=== PATIENT | male | born 1995 | race Hispanic/Latino ===

== ENCOUNTER → 2023-04-10 | Emergency (ER) | payer OTHER ==
[~2023-04-10] MED LIST: KETOROLAC 30 MG/ML INJ ONE
[2023-04-10 08:53] LABS: Absolute Lymphocytes (CBC) 2.6 K/uL (0.7-4.9); Hematocrit 47.4 % (39.6-49.0); Lymphocytes % 27.7 % (15.3-44.8); MCV 88.1 fL (80-100); MPV 8.2 fL (7.6-11.3); Platelets 267 thou/uL (152-406); RBC Red Blood Cell Count 5.38 M/uL (4.33-5.43)
[2023-04-10 09:02] LABS: SARS-CoV-2 Antigen Rapid Res Negative (Negative)
[2023-04-10 09:14] LABS: Albumin 3.8 g/dL (3.4-5.0); Bilirubin Direct 0.1 mg/dL (0-0.2); Bilirubin Indirect, Calculated 0.4 mg/dL (0.2-0.8); Bilirubin Total 0.5 mg/dL (0.2-1.0); Magnesium 2.2 mg/dL (1.6-2.4); Potassium 3.8 mEq/L (3.5-5.1); Protein, Total 7.6 g/dL (6.4-8.2); Thyroid Stimulating Hormone 0.774 uIU/mL (0.358-3.740); Troponin High Sensitivity 3.8 pg/mL (<58.9)
--- NOTE | 2023-04-10 09:17 | RAD REPORT ---
EXAM DESCRIPTION: Radha Single View04/10/2023 9:09 am CLINICAL HISTORY: Chest pain COMPARISON: none FINDINGS: The lungs appear clear of acute infiltrate. The heart is normal size IMPRESSION: No acute abnormalities displayed
--- NOTE | 2023-04-10 09:38 | ER ---
Nurse's Notes [facility] Name: Ramírez Blanca Age: 28 yrs Sex: Male : 1995 Arrival Date: 04/10/2023 Time: 07:31 Bed 19 Private MD: Diagnosis: Chest pain, unspecified Presentation: 04/10 08:14 Chief complaint: Chief complaint: Chest pain since yesterday, cough x 3-4 days. hb 08:14 Coronavirus screen: At this time, the client does not indicate any symptoms associated hb with coronavirus-19. Ebola Screen: No symptoms or risks identified at this time. Initial Sepsis Screen: Does the patient meet any 2 criteria? No. Patient's initial sepsis screen is negative. Does the patient have a suspected source of infection? No. Patient's initial sepsis screen is negative. Risk Assessment: Do you want to hurt yourself or someone else? Patient reports no desire to harm self or others. Onset of symptoms was April 06, 2023. 08:14 Method Of Arrival: Ambulatory hb 08:14 Acuity: FIDELINA 3 hb Historical: - Allergies: 08:16 Suprax; hb - Home Meds: 08:16 None [Active]; hb - PMHx: 08:16 None; hb - PSHx: 08:16 Rhinoplasty; Ear Tubes; Tonsillectomy; hb - Immunization history:: Adult Immunizations up to date. - Social history:: Smoking status: Patient/guardian denies using tobacco. Screenin:17 [facility] ED Fall Risk Assessment (Adult) Score/Fall Risk Level 0 - 2 = Low Risk hb Oriented to surroundings, Maintained a safe environment, Educated pt \T\ family on fall prevention, incl call for assistance when getting out of bed. Abuse screen: Denies threats or abuse. Denies injuries from another. Nutritional screening: No deficits noted. Tuberculosis screening: No symptoms or risk factors identified. Assessment: 08:17 General: Appears in no apparent distress. Behavior is calm, cooperative. Pain: Pain hb currently is 3 out of 10 on a pain scale. Neuro: Level of Consciousness is awake, alert, obeys commands, Oriented to person, place, time, situation. Cardiovascular: Patient's skin is warm and dry. Respiratory: Respiratory effort is even, unlabored, Respiratory pattern is regular, symmetrical. GI: No signs and/or symptoms were reported involving the gastrointestinal system. : No signs and/or symptoms were reported regarding the genitourinary system. EENT: No signs and/or symptoms were reported regarding the EENT system. Derm: Skin is pink, warm \T\ dry. Musculoskeletal: No signs and/or symptoms reported regarding the musculoskeletal system. Vital Signs: 08:14 BP 163 / 86; Pulse 96; Resp 16; Temp 98.9(O); Pulse Ox 100% on R/A; Weight 113.4 kg; hb Height 6 ft. 1 in. ; Pain 3/10; 10:14 BP 138 / 78; Pulse 85; Resp 18; Temp 98; Pulse Ox 100% on R/A; ph 08:14 Body Mass Index 32.98 (113.40 kg, 185.42 cm) hb 08:14 Pain Scale: Adult hb ED Course: 07:35 Patient arrived in ED. mr 07:35 Aly Barron MD is Attending Physician. rt 08:16 Triage completed. hb 08:17 Arm band placed on. hb 08:17 Patient has correct armband on for positive identification. Provided Education on: hb tests, result times. Client placed on continuous cardiac and pulse oximetry monitoring. NIBP monitoring applied. 08:24 Mervat Campos, RN is Primary Nurse. hb 08:32 Patient maintains SpO2 saturation greater than 95% on room air. hb 08:35 SARS RAPID Sent. hb 08:35 Influenza Screen (a \T\ B) Sent. hb 08:35 TSH Sent. hb 08:35 Basic Metabolic Panel Sent. hb 08:35 CBC with Diff Sent. hb 08:35 D-Dimer Sent. hb 08:35 LFT's Sent. hb 08:35 Magnesium Sent. hb 08:35 Troponin HS Sent. hb 08:36 Inserted saline lock: 20 gauge in right antecubital area, using aseptic technique. hb Blood collected. 09:11 XRAY Chest (1 view) In Process Unspecified. EDMS 10:13 No provider procedures requiring assistance completed. IV discontinued, intact, ph bleeding controlled, No redness/swelling at site. Pressure dressing applied. Administered Medications: 08:35 Drug: Ketorolac IVP 15 mg IVP once Route: IVP; Site: right antecubital; hb Medication: 08:17 VIS not applicable for this client. hb Outcome: 09:37 Discharge ordered by . rt 10:13 Discharged to home ambulatory, ph 10:13 Condition: good 10:13 Discharge instructions given to patient, Instructed on discharge instructions, follow up and referral plans. Demonstrated understanding of instructions, follow-up care, 10:15 Patient left the ED. ph Signatures: Dispatcher [employer] EDDE WallerJeannie hahn, Reg Reg mr Pili Grey RN RN ph Mervat Campos RN RN Aly Barron MD MD rt Corrections: (The following items were deleted from the chart) 08:16 08:14 Chief complaint: hb hb
--- NOTE | 2023-04-10 09:38 | EDPHYS ---
Physician Documentation [facility] Name: Ramírez Blanca Age: 28 yrs Sex: Male : 1995 Arrival Date: 04/10/2023 Time: 07:31 Bed 19 Private MD: ED Physician Aly Barron HPI: 04/10 08:19 This 28 yrs old Male presents to ER via Ambulatory with complaints of Cough, rt Chest Pain. 08:19 Patient presents to the ED with cough, chest pain starting last night. Patient states rt that he has been coughing up phlegm. States that he feels somewhat short of breath, states that his anxiety is acting up. Denies other acute complaints at this time, symptoms are moderate in severity, no other aggravating alleviating factors.. Historical: - Allergies: 08:16 Suprax; hb - Home Meds: 08:16 None [Active]; hb - PMHx: 08:16 None; hb - PSHx: 08:16 Rhinoplasty; Ear Tubes; Tonsillectomy; hb - Immunization history:: Adult Immunizations up to date. - Social history:: Smoking status: Patient/guardian denies using tobacco. ROS: 08:19 Constitutional: Negative for fever, chills, and weight loss, Abdomen/GI: Negative for rt abdominal pain, nausea, vomiting, diarrhea, and constipation, MS/Extremity: Negative for injury and deformity, Skin: Negative for injury, rash, and discoloration, Neuro: Negative for headache, weakness, numbness, tingling, and seizure, 08:19 Cardiovascular: Positive for chest pain, Negative for edema, 08:19 Respiratory: Positive for cough, shortness of breath, 08:19 Psych: Positive for anxiety, Negative for depression, Exam: 08:19 Constitutional: This is a well developed, well nourished patient who is awake, alert, rt and in no acute distress. Head/Face: Normocephalic, atraumatic. ENT: Nares patent. No nasal discharge, no septal abnormalities noted. Tympanic membranes are normal and external auditory canals are clear. Oropharynx with no redness, swelling, or masses, exudates, or evidence of obstruction, uvula midline. Mucous membranes moist. Chest/axilla: Normal chest wall appearance and motion. Nontender with no deformity. No lesions are appreciated. Cardiovascular: Regular rate and rhythm with a normal S1 and S2. No gallops, murmurs, or rubs. Normal PMI, no JVD. No pulse deficits. Respiratory: Lungs have equal breath sounds bilaterally, clear to auscultation and percussion. No rales, rhonchi or wheezes noted. No increased work of breathing, no retractions or nasal flaring. Abdomen/GI: Soft, non-tender, with normal bowel sounds. No distension or tympany. No guarding or rebound. No evidence of tenderness throughout. Skin: Warm, dry with normal turgor. Normal color with no rashes, no lesions, and no evidence of cellulitis. MS/ Extremity: Pulses equal, no cyanosis. Neurovascular intact. Full, normal range of motion. Neuro: Awake and alert, GCS 15, oriented to person, place, time, and situation. Cranial nerves II-XII grossly intact. Motor strength 5/5 in all extremities. Sensory grossly intact. Cerebellar exam normal. Normal gait. 08:51 ECG was reviewed by the Attending Physician. rt Vital Signs: 08:14 BP 163 / 86; Pulse 96; Resp 16; Temp 98.9(O); Pulse Ox 100% on R/A; Weight 113.4 kg; hb Height 6 ft. 1 in. ; Pain 3/10; 10:14 BP 138 / 78; Pulse 85; Resp 18; Temp 98; Pulse Ox 100% on R/A; ph 08:14 Body Mass Index 32.98 (113.40 kg, 185.42 cm) hb 08:14 Pain Scale: Adult hb MDM: 08:07 Patient medically screened. rt 09:59 Differential Diagnosis: Other Dysrhythmia, acute coronary syndrome, pneumonia, PE, rt anxiety disorder. Data reviewed: vital signs, nurses notes, lab test result(s), EKG, radiologic studies. I considered the following discharge prescriptions or medication management in the emergency department Medications were administered in the Emergency Department. See MAR. Independent interpretation of the following test(s) in the Emergency Department X-Ray: My interpretation is No pneumonia seen on interpretation of x-ray images. Test considered but Not performed: CT: D-dimer negative, low suspicion for pulmonary embolism, CT angiogram not indicated. Care significantly affected by the following chronic conditions: Anxiety disorder. Counseling: I had a detailed discussion with the patient and/or guardian regarding the historical points, exam findings, and any diagnostic results supporting the discharge/admit diagnosis, lab results, radiology results, the need for outpatient follow up. Response to treatment: the patient's symptoms have markedly improved after treatment. 04/10 08:13 Order name: Basic Metabolic Panel; Complete Time: 09:15 rt 04/10 08:13 Order name: CBC with Diff; Complete Time: 09:15 rt 04/10 08:13 Order name: D-Dimer; Complete Time: 09:15 rt 04/10 08:13 Order name: LFT's; Complete Time: 09:15 rt 04/10 08:13 Order name: Magnesium; Complete Time: 09:15 rt 04/10 08:13 Order name: Troponin HS; Complete Time: 09:15 rt 04/10 08:13 Order name: TSH; Complete Time: 09:15 rt 04/10 08:13 Order name: Influenza Screen (a \T\ B); Complete Time: 09:15 rt 04/10 08:13 Order name: SARS RAPID; Complete Time: 09:15 rt 04/10 08:13 Order name: XRAY Chest (1 view); Complete Time: 09:27 rt 04/10 08:13 Order name: EKG; Complete Time: 08:14 rt 04/10 08:13 Order name: Cardiac monitoring; Complete Time: 08:35 rt 04/10 08:13 Order name: EKG - Nurse/Tech; Complete Time: 08:46 rt 04/10 08:13 Order name: IV Saline Lock; Complete Time: 08:35 rt 04/10 08:13 Order name: Labs collected and sent; Complete Time: 08:35 rt 04/10 08:13 Order name: O2 Per Protocol; Complete Time: 08:35 rt 04/10 08:13 Order name: O2 Sat Monitoring; Complete Time: 08:35 rt EC:51 Rate is 77 beats/min. Rhythm is regular, Normal Sinus Rhythm with No ectopy. QRS [place] rt is Normal. OH interval is normal. QRS interval is normal. QT interval is normal. No Q waves. T waves are Normal. No ST changes noted. Interpreted by me. Administered Medications: 08:35 Drug: Ketorolac IVP 15 mg IVP once Route: IVP; Site: right antecubital; hb Disposition Summary: 04/10/23 09:37 Discharge Ordered Notes: Location: Home rt Problem: an ongoing problem rt Symptoms: have improved rt Condition: Stable rt Diagnosis - Chest pain, unspecified rt Followup: rt - With: Private Physician - When: 2 - 3 days - Reason: Discharge Instructions: - Discharge Summary Sheet rt - Nonspecific Chest Pain, Adult rt Forms: - Medication Reconciliation Form rt - Thank You Letter rt - Antibiotic Education rt - Prescription Opioid Use rt - Patient Portal Instructions rt - Leadership Thank You Letter rt Signatures: Dispatcher [employer] Mervat Rosas, JENNY RN Aly Carcamo MD MD rt
[2023-04-10 10:32] VITALS: O2SAT 100
[2023-04-10 10:52] VITALS: BP 138/78; TEMP 98
== END ==
LOC: ER 07:31
DX: R07.9 Chest pain, unspecified (principal); R05.9 Cough, unspecified; R06.02 Shortness of breath; Z11.52 Encounter for screening for COVID-19; Z88.8 Allergy status to other drugs, medicaments and biological substances
CPT/HCPCS: 36415; 71045; 80048; 80076; 83735; 84443; 84484; 85025; 85379; 87804; 87811; 93005